=== PATIENT | male | born 1975 | race Caucasian/White ===

== ENCOUNTER 2020-02-19 07:23 | Outpatient (CLI) | payer BC, SELFPAY ==
[2020-02-19 07:38] LABS: Basophils Absolute Auto 0.1 K/mm3 (0.0-0.1); Basophils Percent Auto 0.9 % (0.2-1.2); Eosinophils Absolute Auto 0.2 K/mm3 (0-0.3); Eosinophils Percent Auto 2.4 % (0-4.4); Hematocrit 44.1 % (42.0-52.0); Immature Granulocyte Absolute 0.01 K/mm3 (0.00-0.031); Immature Granulocyte Percent A 0.2 % (0-0.5); Lymphocytes Percent Auto 26.7 % (18.3-44.2); Mean Corpuscular Hemoglobin 32.3 pg (26-34); Mean Corpuscular Volume 94.8 fl (80-100); Monocytes Absolute Auto 0.5 K/mm3 (0.1-0.6); Monocytes Percent Auto 8.5 % (2.6-8.5); Neutrophils Absolute Auto 3.9 K/mm3 (1.3-6.7); Neutrophils Percent Auto 61.3 % (45.5-73.1); Platelet Count Result 196 k/mm3 (150-375); Red Blood Count 4.65 M/mm3 (4.6-6.20); Red Cell Distribution Width 11.9 % (11.5-14.5); White Blood Count 6.4 K/mm3 (4.5-10.0)
[2020-02-19 07:50] LABS: Alanine Aminotransferase 10 U/L (4-50); Albumin Level 4.4 g/dL (3.5-5.1); Alkaline Phosphatase 52 U/L (38-126); Anion Gap 5 mmol/L (8-16); Aspartate Amino Transferase 24 U/L (17-59); Bilirubin,Total 0.6 mg/dL (0.2-1.3); Blood Urea Nitrogen 23 mg/dL (9-20); Carbon Dioxide 29 mmol/L (22-30); Chloride 103 mmol/L (98-107); Cholesterol 179 mg/dL (0-200); Estimated Glomerular Filt Rate 59; Glucose 100 mg/dL (75-110); HDL Direct 43 mg/dL; Potassium 4.3 mmol/L (3.4-5.0); Sodium 137 mmol/L (137-145); Triglycerides 186 mg/dL (<150)
[2020-02-19 08:01] LABS: LDL Cholesterol Direct 82 mg/dL
== END 2020-02-19 07:24 | disposition home or self-care (01) ==
LOC: ANHLAB 07:26
PROVIDERS: PCP Internal Medicine; Visit Provider Internal Medicine
DX: Z13.228 Encounter for screening for other metabolic disorders (principal); Z13.220 Encounter for screening for lipoid disorders
CPT/HCPCS: 36415; 80053; 80061; 85025

== ENCOUNTER 2020-05-06 09:45 | Emergency (ER) | payer BC, SELFPAY ==
--- NOTE | ~2020-05-06 | XR_ITS ---
XR thoracic spine 3V DATE: 05/06/2020 11:23 INDICATION: Nontraumatic back pain radiating to right side TECHNIQUE: AP, lateral, swimmer views COMPARISON: None FINDINGS: No fracture or dislocation or bone destruction. The thoracic pedicles are intact. Mild dege nerative spurring of the thoracic spine. No paraspinal soft tissue thickening. IMPRESSION: Mild degenerative spurring Reviewed, dictated and finalized at location A. ESSOR OF RELIGION IMPRESSION: Mild degenerative spurring
--- NOTE | ~2020-05-06 | XR_ITS ---
XR chest 1V portable DATE: 05/06/2020 11:18 INDICATION: Right mid back thoracic pain TECHNIQUE: Portable AP chest on 05/06/2020 at 1110 hours COMPARISON: None FINDINGS: There is aortic arch calcification. Heart size appears within normal range. No hilar or med iastinal enlargement. No pulmonary infiltrate or consolidation, pleural effusion or pulmonary mass or congestion or pneumot horax. IMPRESSION: No active cardiopulmonary disease Reviewed, dictated and finalized at location A. TORIAL CLEANER
[2020-05-06 09:48] VITALS: BP 138/100; PULSE 60; RESP 20; O2SAT 99
--- NOTE | 2020-05-06 10:31 | ECG_ITS ---
Measurements Intervals [place] Rate: 63 P: 53 [place]: 185 QRS: 5 QRSD: 97 T: -10 QT: 375 QTc: 387 Interpretive Statements SINUS RHYTHM DELAYED PRECORDIAL R/S TRANSITION BORDERLINE ST-T WAVE ABNORMALITY- INFERIOR LEADS BASELINE ARTIFACT- II, III, AVR, AVF, V5 BORDERLINE ECG Electronically Signed On 05-06-2020 11:27:54 BOAT CLEANER by Zach Soler D.O.
--- NOTE | 2020-05-06 10:37 | ED.GENADULT ---
HPI - General Adult General Chief complaint: Back Pain/Injury Stated complaint: Back Pain Time Seen by Provider: 05/06/20 10:03 Source: patient and family Mode of arrival: ambulatory Limitations: no limitations History of Present Illness HPI narrative: 44 years old white male presents with pain and spasm at the right side of mid thoracic back started while sitting yesterday on the computer. Get better on anti-inflammatory medicine then comes back again. Get worse with any movement. Patient denies any fever, chills, nausea, vomiting, urinary symptoms, chest pain, shortness of breath, headache. Patient also denies exposure to anybody known having COVID-19. Patient brought to the emergency room with his mom. History of intermittent lower back pain patient. Patient denies any tingling, numbness, urinary incontinence or stool incontinence. Also denies any trauma Related Data Allergies Allergy/AdvReac Type Severity Reaction Status Date / Time No Known Allergies Allergy Verified 05/06/20 09:53 Review of Systems Review of Systems: Narrative: CONSTITUTIONAL: Denies fever, chills, or sweats. EYES: Denies visual changes, redness, or discharge. ENT: Denies rhinorrhea, congestion, sore throat, or otalgia. CARDIOVASCULAR: Denies chest pain, palpitations, or edema. RESPIRATORY: Denies cough or dyspnea. GASTROINTESTINAL: Denies abdominal pain, nausea, vomiting, or diarrhea. GENITOURINARY: Denies dysuria or hematuria. SKIN: Denies rash or itching. MUSCULOSKELETAL: Mid back pain NEUROLOGIC: Denies headache, numbness, or weakness. PSYCHIATRIC: Denies anxiety or depression. PMFSH Past Medical History Medical History Hernia History of abdominal pain Surgical History Surgical History H/O hernia repair Family History Family History Father Diabetes mellitus Mother Sarcoidosis Sibling Patient's sister is in good health Social History Social History Smoking status: Never smoker Alcohol intake: current Gender identity (if verbalized by the patient): Male Exam Narrative: Exam Narrative: General appearance: Well-developed, well-nourished Skin: Normal color Head: Normocephalic, nontraumatic Eyes: Clear conjunctiva ENT: Oropharynx normal, ears normal, nose normal Neck: Supple, nontender Chest and respiratory: Airway patent, no respiratory distress, no accessory muscle use Heart: Regular rate/rhythm Abdomen: Soft, nontender, no organomegaly, quiet bowel sounds Vascular: Normal peripheral pulses, normal capillary refill. Musculoskeletal: Patient unable to lay down in bed, sitting on a chair, was able to stand with severe pain in upright position, unable to tilt to either side or bend forward. Because of the severity of pain. Back exam showed no swelling, no bruises, no erythema, no localized tenderness. Severe limited range of motion Neurologic: Alert and oriented ?3, SECURITY ADVISOR is normal as tested, no gross motor deficit Course Course Emergency Course: Stable Vital Signs Vital signs: Vital Signs Pulse Rate 60 05/06/20 09:48 Respiratory Rate 20 05/06/20 09:48 Blood Pressure 138/100 H 05/06/20 09:48 Pulse Oximetry 99 05/06/20 09:48 Pulse Rate 60 05/06/20 09:48 Respiratory Rate 20 05/06/20 09:48 Blood Pressure 138/100 H 05/06/20 09:48 Pulse Oximetry 99 05/06/20 09:48 Medical Decision Making MDM Narrative Medical decision making narrative: Musculoskeletal pain is my concern. Labs, IV Toradol, Dilaudid, Valium ordere
[2020-05-06 11:03] LABS: Basophils Absolute Auto 0.1 K/mm3 (0.0-0.1); Basophils Percent Auto 0.7 % (0.2-1.2); Eosinophils Absolute Auto 0.1 K/mm3 (0-0.3); Eosinophils Percent Auto 1.5 % (0-4.4); Hematocrit 47.7 % (42.0-52.0); Hemoglobin 16.5 g/dL (14.0-18.0); Immature Granulocyte Absolute 0.01 K/mm3 (0.00-0.031); Immature Granulocyte Percent A 0.1 % (0-0.5); Lymphocytes Absolute Auto 1.53 K/mm3 (0.9-3.2); Lymphocytes Percent Auto 22.2 % (18.3-44.2); Mean Corpuscular HGB Conc 34.6 g/dl (32-36); Mean Corpuscular Hemoglobin 32.7 pg (26-34); Mean Corpuscular Volume 94.6 fl (80-100); Monocytes Absolute Auto 0.4 K/mm3 (0.1-0.6); Monocytes Percent Auto 6.1 % (2.6-8.5); Neutrophils Absolute Auto 4.8 K/mm3 (1.3-6.7); Neutrophils Percent Auto 69.4 % (45.5-73.1); Platelet Count Result 216 k/mm3 (150-375); Red Blood Count 5.04 M/mm3 (4.6-6.20); Red Cell Distribution Width 12.1 % (11.5-14.5); White Blood Count 6.9 K/mm3 (4.5-10.0)
[2020-05-06 11:13] LABS: Creatine Kinase 67 U/L (55-170)
[2020-05-06 11:15] LABS: Alanine Aminotransferase 13 U/L (4-50); Albumin Level 4.4 g/dL (3.5-5.1); Alkaline Phosphatase 55 U/L (38-126); Anion Gap 8 mmol/L (8-16); Aspartate Amino Transferase 26 U/L (17-59); Bilirubin,Total 0.8 mg/dL (0.2-1.3); Blood Urea Nitrogen 17 mg/dL (9-20); Calcium 9.7 mg/dL (8.4-10.2); Carbon Dioxide 29 mmol/L (22-30); Chloride 102 mmol/L (98-107); Estimated CRCL calculation 74 ml/min; Estimated Glomerular Filt Rate > 60; Glucose 100 mg/dL (75-110); Potassium 4.6 mmol/L (3.4-5.0); Sodium 139 mmol/L (137-145)
[2020-05-06 11:16] LABS: D Dimer 0.28 ug/mL (<0.48)
[2020-05-06 11:17] LABS: CRP 0.5 mg/dL (<1.0)
[2020-05-06 11:26] LABS: Add Urine Microscopic? YES; Appearance Urine Clear (Clear); Bilirubin Urine 1+ (Negative); Blood Urine Negative (Negative); Color Urine Yellow (Yellow); Glucose Urine UA Negative (Negative); Ketones Urine Negative (Negative); Leukocyte Esterase Ur Negative LEU/UL (Negative); Mucus Urine Rare /lpf; Nitrate Urine Negative (Negative); Protein Urine 1+ mg/dL (Negative); RBC Urine 0-2 /hpf (0-2); Specific Grav Ur 1.029 (1.001-1.035); Squamous Epithelial Cell Urine Rare /hpf (Few); Urobilinogen Urine Negative mg/dL (<2.0); WBC Urine 0-3 /hpf
[2020-05-06] MEDS: diazePAM INJ (*CRX) 10 MG/2 ML SYRINGE 5 MG IV PUSH (11:42)
[2020-05-06] MEDS: ONDANSETRON INJ 4 MG/2 ML VIAL IV PUSH (11:42)
[2020-05-06] MEDS: KETOROLAC 30 MG/ML VIAL (*BKC) IV PUSH (11:43)
[2020-05-06 12:19] VITALS: BP 121/78; PULSE 60; RESP 18; O2SAT 97
[2020-05-06 12:36] LABS: Erythrocyte Sedimentation Rate 1 mm/hr (0-20)
== END 2020-05-06 12:24 | disposition home or self-care (01) ==
PROVIDERS: Emergency Provider Emergency Medicine; PCP Internal Medicine
DX: M54.6 Pain in thoracic spine (principal); R94.31 Abnormal electrocardiogram [ECG] [EKG]
CPT/HCPCS: 36415; 71045; 72072; 80053; 81001; 82550; 85025; 85380; 85652; 86140; 93005; 96374; 96375; 99284; J1885; J2405; J3360

== ENCOUNTER 2021-05-06 08:14 | Outpatient (CLI) | payer BC, SELFPAY ==
[2021-05-06 09:27] LABS: Alanine Aminotransferase 14 U/L (4-50); Albumin Level 4.6 g/dL (3.5-5.1); Alkaline Phosphatase 54 U/L (38-126); Anion Gap 6 mmol/L (8-16); Aspartate Amino Transferase 24 U/L (17-59); Bilirubin,Total 0.6 mg/dL (0.2-1.3); Blood Urea Nitrogen 19 mg/dL (9-20); Calcium 9.5 mg/dL (8.4-10.2); Carbon Dioxide 32 mmol/L (22-30); Chloride 99 mmol/L (98-107); Cholesterol 196 mg/dL (0-200); Estimated Glomerular Filt Rate > 60; Glucose 90 mg/dL (65-110); HDL Direct 46 mg/dL; Sodium 137 mmol/L (137-145); Triglycerides 192 mg/dL (<150)
[2021-05-06 09:38] LABS: LDL Cholesterol Direct 97 mg/dL
[2021-05-06 09:50] LABS: Basophils Absolute Auto 0.1 K/mm3 (0.0-0.1); Basophils Percent Auto 0.8 % (0.2-1.2); Eosinophils Absolute Auto 0.1 K/mm3 (0-0.3); Eosinophils Percent Auto 2.2 % (0-4.4); Hematocrit 46.5 % (42.0-52.0); Hemoglobin 15.7 g/dL (14.0-18.0); Immature Granulocyte Absolute 0.02 K/mm3 (0.00-0.031); Immature Granulocyte Percent A 0.3 % (0-0.5); Lymphocytes Absolute Auto 1.49 K/mm3 (0.9-3.2); Lymphocytes Percent Auto 22.9 % (18.3-44.2); Mean Corpuscular HGB Conc 33.8 g/dl (32-36); Mean Corpuscular Hemoglobin 31.8 pg (26-34); Mean Corpuscular Volume 94.3 fl (80-100); Mean Platelet Volume 11.7 fl (7.4-10.4); Monocytes Absolute Auto 0.6 K/mm3 (0.1-0.6); Monocytes Percent Auto 8.5 % (2.6-8.5); Neutrophils Absolute Auto 4.3 K/mm3 (1.3-6.7); Neutrophils Percent Auto 65.3 % (45.5-73.1); Platelet Count Result 236 k/mm3 (150-375); Red Blood Count 4.93 M/mm3 (4.6-6.20); Red Cell Distribution Width 11.9 % (11.5-14.5); White Blood Count 6.5 K/mm3 (4.5-10.0)
== END 2021-05-06 08:15 | disposition home or self-care (01) ==
LOC: ANHLAB 08:15
PROVIDERS: PCP Internal Medicine; Visit Provider Nurse Practitioner
DX: Z13.228 Encounter for screening for other metabolic disorders (principal); R79.89 Other specified abnormal findings of blood chemistry; Z13.220 Encounter for screening for lipoid disorders
CPT/HCPCS: 36415; 80053; 80061; 85025

== ENCOUNTER 2022-03-16 09:43 | Outpatient (CLI) | payer BC, SELFPAY ==
--- NOTE | ~2022-03-16 | MR_ITS ---
EXAMINATION: MR knee LT wo con DATE: 03/16/2022 10:20 INDICATION: Left knee joint effusion with acute onset of left knee pain TECHNIQUE: Magnetic resonance imaging (MRI) of the left knee was performed without intravenous contra st. Sequences included coronal PD-weighted FSE, coronal PD-weighted FS FSE, sagittal T2-weighted FSE , sagittal PD-weighted FS FSE and axial PD weighted fat saturated FSE. COMPARISON: None. FINDINGS: Medial compartment: Medial meniscus is normal. Articular cartilage is normal. Lateral compartment: Lateral meniscus is normal. Articular cartilage is normal. Patellofemoral compartment: Deep chondral fissuring with mild underlying subarticular edema-like signal change at the medial side of the lateral patellar facet and apical ridge as well as at the medial patellar facet where there i s also mild underlying cortical irregularity. Partial-thickness chondral ulceration which appears to involve greater than 50% the cartilage thickness but with relatively smooth chondral surfaces and wit hout degenerative subchondral changes located along the central aspect of the lateral trochlea and at the lateral side of the medial trochlea. Deep chondral fissuring without degenerative subchondral ch anges at the inferior aspect of the medial trochlea. Ligaments and tendons: Anterior and posterior cruciate ligaments are normal. The medial collateral ligament and fibular tessy ateral ligament complex are normal. The extensor mechanism is normal. The visualized medial and later al hamstring tendons as well as the iliotibial band are normal. Fluid: Small left knee joint effusion. No loose osteochondral bodies identified. Osseous/other: Normal marrow signal aside from the previous noted small foci of subarticular edema-like signal caicedo e at the patella.. No fracture or pathologic marrow replacing process. IMPRESSION: 1. 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 2. Small left knee joint effusion. Reviewed, dictated and finalized at location A. IMPRESSION: 1. Mild patellofemoral osteoarthritis with high-grade patellar and moderate gra de trochlear chondromalacia. 2. Small left knee joint effusion.
== END 2022-03-16 09:44 | disposition home or self-care (01) ==
LOC: ANHIMG 09:44
PROVIDERS: PCP Internal Medicine; Visit Provider Physician Assistant
DX: M25.562 Pain in left knee (principal); M25.462 Effusion, left knee; M17.12 Unilateral primary osteoarthritis, left knee; M94.262 Chondromalacia, left knee
CPT/HCPCS: 73721

== ENCOUNTER 2022-04-17 08:24 | Outpatient (CLI) | payer BC, SELFPAY ==
[2022-04-17 09:33] LABS: Basophils Percent Auto 0.6 % (0.2-1.2); Eosinophils Absolute Auto 0.1 K/mm3 (0-0.3); Eosinophils Percent Auto 1.4 % (0-4.4); Hematocrit 46.7 % (42.0-52.0); Hemoglobin 15.6 g/dL (14.0-18.0); Immature Granulocyte Absolute 0.01 K/mm3 (0.00-0.031); Immature Granulocyte Percent A 0.2 % (0-0.5); Lymphocytes Absolute Auto 1.33 K/mm3 (0.9-3.2); Lymphocytes Percent Auto 21.2 % (18.3-44.2); Mean Corpuscular HGB Conc 33.4 g/dl (32-36); Mean Corpuscular Hemoglobin 32.4 pg (26-34); Mean Corpuscular Volume 97.1 fl (80-100); Monocytes Absolute Auto 0.4 K/mm3 (0.1-0.6); Monocytes Percent Auto 6.4 % (2.6-8.5); Neutrophils Absolute Auto 4.4 K/mm3 (1.3-6.7); Neutrophils Percent Auto 70.2 % (45.5-73.1); Platelet Count Result 215 k/mm3 (150-375); Red Blood Count 4.81 M/mm3 (4.6-6.20); Red Cell Distribution Width 12.2 % (11.5-14.5); White Blood Count 6.3 K/mm3 (4.5-10.0)
[2022-04-17 09:55] LABS: Alanine Aminotransferase 16 U/L (6-50); Albumin Level 4.5 g/dL (3.5-5.1); Alkaline Phosphatase 51 U/L (38-126); Anion Gap 6 mmol/L (8-16); Aspartate Amino Transferase 26 U/L (17-59); Bilirubin,Total 0.5 mg/dL (0.2-1.3); Blood Urea Nitrogen 22 mg/dL (9-20); Carbon Dioxide 31 mmol/L (22-30); Chloride 104 mmol/L (98-107); Cholesterol 197 mg/dL (0-200); Estimated Glomerular Filt Rate > 60; Glucose 98 mg/dL (65-110); HDL Direct 50 mg/dL; Sodium 141 mmol/L (137-145); Triglycerides 191 mg/dL (<150)
[2022-04-17 10:05] LABS: LDL Cholesterol Direct 87 mg/dL
== END 2022-04-17 08:25 | disposition home or self-care (01) ==
PROVIDERS: PCP Internal Medicine; Visit Provider Clinical Nurse Specialist
DX: Z13.220 Encounter for screening for lipoid disorders (principal); Z13.29 Encounter for screening for other suspected endocrine disorder
CPT/HCPCS: 36415; 80053; 80061; 85025

== ENCOUNTER 2024-09-05 00:36 | Day surgery (SDC) | payer OTHER, SELFPAY ==
[2024-08-27 08:50] VITALS: BMI 31.4
--- OUTSIDE RECORDS SUMMARY | 2024-09-05 00:38 | XMS_ITS | Referral Summary ---
Author Organization [facility] Address [address] [place] [address] Care Team Providers Care Potato Peeler Name Role Phone Alberto Hurley DO Primary Care Provider [phone]- [phone] Allergies No known active allergies Medications No known medications Active Problems Problem Noted Date Diagnosed Date Inguinal pain 02/26/2014 Social History Tobacco Use Types Packs/Day Years Used Date Smoking Tobacco: Never Personal Safety Answer Date Recorded Have you ever been in or are you currently in a harmful physical or emotional relationship or is someone making you feel afraid or unsafe? 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 Gender Identity Not on file Sexual Orientation Not on file Last Filed Vital Signs Vital Sign Reading Time Taken Comments Blood Pressure 124/87 10/03/2023 10:45 AM CDT Pulse 75 10/03/2023 10:45 AM CDT Temperature 36.4 C (97.5 F) 10/03/2023 10:10 AM CDT Respiratory Rate 18 10/03/2023 10:45 AM CDT Oxygen Saturation 95% 10/03/2023 10:45 AM CDT Inhaled Oxygen Concentration - - Weight 88.5 kg (195 lb) 02/27/2022 8:35 AM CDT Height 170.2 cm (5' 7 ) 02/27/2022 8:35 AM CDT Body Mass Index 30.54 02/27/2022 8:35 AM CDT Plan of Treatment Not on file [place] Care Teams Potato Peeler Relationship Specialty Start Date End Date Yaonsky, Alberto B., DO PCP - General Internal Medicine 12/29/21
--- OUTSIDE RECORDS SUMMARY | 2024-09-05 00:38 | XMS_ITS | Clinical Summary ---
Author Organization [facility] Address [address] [place] [address] Care Team Providers Care Coupler Name Role Phone Alberto Hurley DO Primary Care Provider [phone]- [phone] Allergies No known active allergies Medications No known medications Active Problems Problem Noted Date Diagnosed Date Inguinal pain 02/26/2014 Surgical History Surgery Date Site/Laterality Comments NO PAST SURGERIES FLUORO GUIDED INJECTION SHOULDER LEFT 10/03/2023 Lef t Medical History Medical History Date Comments No pertinent past medical history Family History Medical History Relation Name Comments Diabetes Father Family history of diabetes mellitus - (Added by TW Conv) Relation Name Status Comments Father Social History Tobacco Use Types Packs/Day Years Used Date Smoking Tobacco: Never Personal Safety Answer Date Recorded Have you ever been in or are you currently in a harmful physical or emotional relationship or is someone making you feel afraid or unsafe? Denies 10/03/2023 Sex and Gender Information Value Date Recorded Sex Assigned at Not on file Legal Sex Male 10:44 AM APPLICATIONS SPECIALIST Gender Identity Not on file Sexual Orientation Not on file Obstetrics History Last Filed Vital Signs Vital Sign Reading [...] 02/27/2022 8:35 AM CDT Plan of Treatment Health Maintenance Due Date Last Done Comments Colon Cancer Screening-Colonoscopy 1973 Depression Screening 1973 Hepatitis C Screening 1973 Prostate Cancer Screening-PSA 1973 DTaP/Tdap/Td Vaccine (1 - Tdap) 1984 Hepatitis B Screening 10/25/1991 Regular Well Visit/Exam 18-64 10/25/1991 Zoster Vaccine (1 of 2) 10/25/2023 Covid-19 Vaccine (3 - 2023-2 5 season) 2024 02/09/2021, 01/19/2021 Influenza Vaccine (Season Ended) 2025 Pneumococcal vaccine <65 Aged Out No longer eligible based on patient's age to complete this topic Insurance [employer] [facility] [place] [address] [facility] Care Teams Coupler Relationship Specialty Start Date End Date Alberto Hurley DO PCP - General Internal Medicine 12/29/21
--- OUTSIDE RECORDS SUMMARY | 2024-09-05 00:38 | XMS_ITS | Continuity of Care Document ---
Author Organization [facility] Address [address] [place] [address] Phone Care Team Providers Care Manager Of Program Name Role Phone Ordaz ROBERT Yaz Unavailable Unavailable Procedures Procedure Date THERAPEUTIC EXERCISES NEUROMUSCULAR RE-ED MANUAL THERAPY FUNC ACTIVITY THERAPEUTIC EXERCISES NEUROMUSCULAR RE-ED FUNC ACTIVITY PT EVALUATION THERAPEUTIC EXERCISES NEUROMUSCULAR RE-ED MANUAL THERAPY Advance Directives Directive Yes / No Effective Date File Name No Information Encounters Encounter Description Practice Location Reason(s) For Visit Diagnoses Date Provider Providers Copied on Encounter [facility] [address] [place] [address], [id number], [phone] [place] No Information 5 Orlin Mukherjee. [address] [facility] [address], [place], [facility], [place]. tel: [phone] [address], [place], [place], [id number], [phone] [place] No Information 4 Morris Oneal. [address] [facility], [facility] [address], [place], [facility], . tel: [phone] Referring Provider: Adam Huang, [address], [place], [address]. tel:[phone], [place], [place], [id number], [phone] [place] Other and unspecified injury to hip and thigh [address] [place] [address] [facility], [address], [place], [facility], . tel: [phone] Referring Provider: Rosa [address], [place], [address]. tel:[phone] [facility], [address], [place], [place], [id number], [phone] [place] Pain in joint involving pelvic region and thigh 4 Morris Oneal. [address] [facility], [address], [place], [address], . tel: [phone] Referring Provider: Rosa [address], [place], [address]. tel:[phone] Family History Family Member Type Diagnosis Age At Onset No Information Payers Payer name Insurance type Covered republican ID Authoriza tion(s) No Information Social History Type Description Quantity Date Captured Comments Sex Male Smoking Status No Information Chief Complaint And Reason For Visit No Information Reason For Referral Reason For Referral No Information History Of Present Illness Encounter Date Complaint History Of Prese nt Illness No Information Functional Status Date Functional Assessmen t No Information Instructions Date Instruction Additional Infor mation No Information Assessments Type Assessment Date No Information Patient Care Teams Name Effective Dates (start - stop) Status Members No Information
--- OUTSIDE RECORDS SUMMARY | 2024-09-05 00:38 | XMS_ITS | Clinical Summary ---
Author Organization [facility] Address [address] [place] [address] Care Team Providers Care Pipe Roller Name Role Phone Unavailable Primary Care Provider Unavailabl e Immunizations Immunization Administration Dates Next Due Covid-19, Mrna, Lnp-s, Pf, 30 Mcg/0.3 Ml Dose (Marilynn chandler) 02/09/2021,01/19/2021 Social History Tobacco Use Types Packs/Day Years Used Date Smoking Tobacco: Never Assessed Sex and Gender Information Value Date Recorded Sex Assigned at Not on file Legal Sex Male 9:42 PM CDT Gender Identity Not on file Sexual Orientation Not on file Plan of Treatment Health Maintenance Due Date Last Done Comments Hepatitis C Virus (HCV) Screening 1973 TdaP Immunization 1973 Hepatitis B Immunization (1 of 3 - 19+ 3-dose series) 1992 Colonoscopy 2018 Colorectal Cancer Screening 2018 Cologuard 10/25/2023 Immunochemical Fecal Occult Blood 10/25/2023 Pneumococcal Immunization (5 0+ years) (1 of 1 - PCV) 10/25/2023 Zoster Immunization (1 of 2) 10/25/2023 Influenza Immunization (#1) 2024 SARS-COV-2 Immunization (3 - 2023- season) 2024 02/09/2021, 01/19/2021 Respiratory Syncytial Virus (RSV) Immunization (Adult) (1 - 1-dose 75+ series) 2048 Meningococcal Immunization (ACWY) Aged Out No longer eligible b ased on patient's age to complete this topic Rotavirus Immunization Aged Out No lo nger eligible based on patient's age to complete this topic
--- OUTSIDE RECORDS SUMMARY | 2024-09-05 00:39 | XMS_ITS | Data Portability ---
Author Organization [facility], Main Office Address [address] [place] [address] Assessment Encounter Date Assessment Date Assessment LastModified by Organization Details LastModified Time 09/01/2022 09/01/2022 46-year-old male presenting for evaluation of his left knee. We are also seeing his daughter, who is the freshman athlete at [employer] with patellar dislocation Treated conservatively. He reports he was playing basketball about 9 months ago, with his kids, when he felt a sudden pain in the lateral and posterior aspect of the left knee. He does report some mechanical symptoms including difficulty extending from a flexed position. He has not treatments, but did get an MRI, which was negative. It still bothers him frequently, Getting progressively worse,and he has been limited in his activities. He has not been able to run or play with his kids. Review of systems per patient questionnaire nonantalgic gait. No effusion. He has tenderness palpation over the posterior aspect of the left knee, And some discomfort over the medial joint line. Range of motion 0-135, with some discomfort in terminal flexion. Negative Scott's. Stable Niall's, posterior drawer, varus and valgus stress at previous MRI was reviewed, demonstrating no abnormalities, preserve ligaments and menisci his symptoms that he is describing sounds like a meniscus injury, but the MRI was negative and he has not tried any formal treatments yet. We will give him an order for physical therapy and also a prescription for meloxicam. We will see him back in 4 weeks for follow-up. [email or web address] Not available 09/01/2022 11:29:07 Plan of Treatment Reminders Order Date Submit Date Provider Last Modified By Organization Details Last Modified Time Details Appointments None recorded. Lab None recorded. Referral physical therapist referral - Please contact pt to schedule for L knee. Thanks 2022 023 [email or web address] [facility], [address], [place], [address], 18:30:57 Procedures None recorded. Surgeries None recorded. Imaging None recorded. Medication Orders Mobic 15 mg tablet 2022 023 [email or web address] [id number], [address], [place], [place], [id number], 18:30:57 Patient TargetsNo targets recorded. Patient InstructionsNo instructions recorded. Reason for Referral Physical Therapist Referral for Pain of left knee joint L knee Please contact pt to schedule for L knee. Thanks Referring Physician: Alberto Tomlin, Orthopedic Surgery, Encounter Date: 09/01/2022 Results Created Date Observation Date Name Description Value Unit Range Abnormal Flag Note LastModifiedBy Organization Detail LastModifiedTime 09/02/1903/16/2022 MRI, knee, w/o contr ast No observ ation record ed. [email or web address] Not Available 2022 09:20:57 Result Notes None recorded. Problems Name Problem SNOMED Code Status Onset Date Resolution Date Notes Provider Name and Address Organization Details Recorded Time Pain of left knee joint [id number] Active 2022 Rachel Nicolas , ATC L null, [employer] 10:08:36 Problem Notes None recorded. Procedures Surgical History Date Name Laterality Status Provider Name and Address Organization Details Recorded Time Hernia Repair completed TRITSIN Jamison [employer] 09/01/2022 09:26:19 Imaging Results Imaging Date Name Status LastModified by Organiz ation Details LastModified Time 03/16/2022 MRI, knee, w/o contrast completed Information not available 09/01/2022 09:20:57 Procedure Notes None recorded. Medical Equipment None Reported. Allergies No known drug allergies Medications Name Sig Start Date Stop Date Status Note LastModified by Organization Details LastModified Time meloxicam 15 mg tablet TAKE 1 TABLET BY MOUTH EVERY DAY 2023 active Not Available Not Available Not Avai lable celecoxib 100 mg capsule TAKE 1 CAPSULE BY MOUTH TWICE DAILY 09/01 completed Not Available Not Available Not Available Vitals Date Recorded Body height Body mass index (BMI) Body weight Provider Name and Address Organization Details Last Updated DateTime 09/01/2022 170.18 cm 31.3 kg/m2 54374.47 g TRISTIN Kent [facility] [employer] [facility] 09/01/2022 09:25:26 Social History Question Answer Notes LastModified by Organizat ion Details LastModified Time Tobacco Smoking Status Never Smoker Augustine FariasleyTRISTIN null, [facility] [employer] [facility] 09/01/2022 09:26:13 What Is Your Level Of Alcohol Consumption? None Information not available 09/01/2022 Sex: Unknown Functional Status None recorded. Mental Status None recorded. Family History Relationship Description Onset Age of this Age Resolved Age Notes LastModified by Organization Details LastModified Time Father Diabetes mellitus [email or web address] Not available 2022 09:26:04 Medical History No medical history recorded. Past Encounters Encounter ID Performer Location Encounter Start Date Encounter Closed Date Diagnosis/Indication Diagnosis SNOMED-CT Code Diagnosis ICD10 Code Diagnosis Note [id number] Alberto Tomlin MD [facility] [address] [place] [address] 09/01/2022 09:18:22 09/01/2022 10:14:17 Pain of left knee joint [id number] 51359 M25.562 Health Concerns Section Related Observation LastModified by Organization Detai ls LastModified Time None Recorded Concern Status LastModified by Organization Details LastModified Time None Recorded Advance Directives Directive None Recorded Payers Encounter Date Sequence Insurance Name Policy Number Policy Felton Covered Member ID Felton Member ID Guarantor Name 09/01/2022 1 [place] [id number] Lazaro Aguirre [id number] Lazaro Aguirre
--- OUTSIDE RECORDS SUMMARY | 2024-09-05 00:39 | XMS_ITS | Clinical Summary ---
Author Organization [facility] [email or web address] Address [address] [place] [address] Care Team Providers Care Buckle Gluer Name Role Phone Unavailable Primary Care Provider Unavailabl e Source Comments [facility] [email or web address],non-owned Affiliates and Associated Physician Practices is amultiple site organization consisting of ambulatory clinics and hospital sitesin [place], [place], [place] and [place]. This disclosure is being madepursuant to the Care Everywhere program and may not contain all information available regarding this patient. Last updated 18.[facility] [email or web address] Social History Tobacco Use Types Packs/Day Years Used Date Smoking Tobacco: Never Assessed Sex and Gender Information Value Date Recorded Sex Assigned at Not on file Gender Identity Not on file Sexual Orientation Not on file Plan of Treatment Health Maintenance Due Date Last Done Comments COLOGUARD (AGES 45-75) - COL ON CA SCREENING 1973 COLON MONITORING 1973 COLONOSCOPY - COLON CA SCREENING 1973 CT COLONOGRAPHY - COLON CA SCREENING 1973 Colorectal Cancer Screening 1973 FIT - COLON CA SCREENING 1973 FLEX SIG - COLON CA SCREENING 1973 LIPID TESTING 1973 HIV SCREENING 1988 HEPATITIS C SCREENING 10/20/1991 DTAP/TDAP/TD VACCINES (1 - Tdap) 1992 HEPATITIS B VACCINE (1 of 3 - 19+ 3-dose series) 1992 PNEUMOCOCCAL VACCINE 50+ (1 of 1 - PCV) 10/25/2023 ZOSTER VACCINE (1 of 2) 10/25/2023 COVID-19 VACCINE ( - 2023-2 5 season) 2024 DEPRESSION SCREENING 05/28/2024 INFLUENZA VACCINE (Season Ended) 2025 HIB VACCINE Aged Out No longer eligi ble based on patient's age to complete this topic HPV VACCINE Aged Out No longer eligi ble based on patient's age to complete this topic MENINGOCOCCAL (Group B) VACC INE SHARED DECISION-MAKING Aged Out No longer eligibl e based on patient's age to complete this topic MENINGOCOCCAL GROUPS A/C/Y/W VACCINE Aged Out No longer eligible b ased on patient's age to complete this topic PNEUMOCOCCAL VACCINE Aged Out No long er eligible based on patient's age to complete this topic
--- OUTSIDE RECORDS SUMMARY | 2024-09-05 00:39 | XMS_ITS | Encounter Summary ---
Author Organization [facility] Address [address] [place] [address] Care Team Providers Care Special Education Director Name Role Phone Unavailable Primary Care Provider Unavailabl e Encounter Details Date Type Department Care Team (Late st Contact Info) Description 02/17/2021 Lab Requisition [facility] [address] [place] [id number] Yeison Urlich MD [address] [place] [address] Social History Tobacco Use Types Packs/Day Years Used Date Smoking Tobacco: Never Assessed Sex and Gender Information Value Date Recorded Sex Assigned at Not on file Gender Identity Not on file Sexual Orientation Not on file documented as of this encounter Plan of Treatment Not on file documented as of this encounter Procedures Procedure Name Priority Date/Time Associated Diagnosis Comments DERMATOPATHOLOGY Routine 02/15/2021 3:33 AM CDT documented in this encounter Results * DERMATOPATHOLOGY (02/15/2021 3:33 AM CDT) Case Report Dermatopathology Report Case: [id number] Authorizing Provider: Yeison Ulrich MD Collected: 02/15/2021 03:33 AM Ordering Location: [facility] Received: 02/17/2021 05:52 AM Pathologist: Eileen Bean MD Specimen: Skin, right antihelix 1 2:59 PM CDT DERMATOPATHOLOGY LABORATORY Final Diagnosis Specimen A. SKIN, right antihelix: SQUAMOUS CELL CARCINOMA, WELL DIFFERENTIATED (C44.222) 1 2:59 PM CDT DERMATOPATHOLOGY LABORATORY Clinical History R/O SCC. 1 2:59 PM CDT DERMATOPATHOLOGY LABORATORY Gross Description Specimen A: Received is one formalin filled container labeled with the patient's name and designated right antihelix. The specimen consists of a shave biopsy measuring [id number]. Jar 0. 1 2:59 PM CDT DERMATOPATHOLOGY LABORATORY Microscopic Description Specimen A. SKIN, right antihelix: Arising in the epidermis and extending into the dermis there are irregularly shaped aggregates of keratinocytes showing evidence of premature cornification. 1 2:59 PM CDT DERMATOPATHOLOGY LABORATORY Disclaimer An external and internal positive and negative controls are appropriate for the histochemical, immunohistochemical and immunofluorescence stain(s) in this case (if any), except where stated explicitly. The performance characteristics of the stain(s) cited in this report were developed and its performance characteristic determined by the Dermatopathology Laboratory at [facility], directed by Dr. Hawk Freeman. These tests need not be, and therefore are not, approved by the [place] Food and Drug Administration. The tests are used for clinical purposes. Billing Codes Specimen Charges Stain Charges 46774 1 1 2:59 PM CDT DERMATOPATHOLOGY LABORATORY Embedded Images 1 2:59 PM CDT DERMATOPATHOLOGY LABORATORY Pathology/Cytolo gy TISSUE SPECIMEN FROM SKIN / Unknown 02/15/2021 3:33 AM CDT 02/17/2021 5:52 AM CDT Yeison Ulrich MD LAB - PATHOLOGY/CYTO LOGY ORDERABLES DERMATOPATHOLOGY LABORATORY [facility] [place] Department of Dermatology [address] [phone] documented in this encounter Visit Diagnoses Not on filedocumented in this encounter
--- OUTSIDE RECORDS SUMMARY | 2024-09-05 00:39 | XMS_ITS | Clinical Summary ---
Author Organization [facility] Address [facility] [address] [place] [address] Care Team Providers Care Counterintelligence Analyst Name Role Phone Alberto Hurley DO Primary Care Provider [phone] Social History Tobacco Use Types Packs/Day Years Used Date Smoking Tobacco: Never Assessed Sex and Gender Information Value Date Recorded Sex Assigned at Not on file Legal Sex Male 6:34 PM CDT Gender Identity Not on file Sexual Orientation Not on file Plan of Treatment Health Maintenance Due Date Last Done Comments Colorectal Cancer Screening Colonoscopy (10 Years) 1973 Annual Physical 1976 Hepatitis C 10/25/1991 DTaP, Tdap and Td Vaccines ( 1 - Tdap) 1992 Hepatitis B Vaccines (1 of 3 - 19+ 3-dose series) 1992 Zoster Vaccines (1 of 2) 10/25/2023 COVID-19 Vaccine (1 - 2023-2 5 season) 2024 Meningococcal B Vaccine Aged Out No l onger eligible based on patient's age to complete this topic Meningococcal Vaccine Aged Out No blaine caleb eligible based on patient's age to complete this topic Pneumococcal Vaccine: Pediat rics (0 to 5 Years) and At-Risk Patients (6 to 64 Years) Aged Out No longer eligible b ased on patient's age to complete this topic RSV Immunizations Under 20 Months Aged Out No longer eligible based on patient's age to complete this topic Care Teams Counterintelligence Analyst Relationship Specialty Start Date End Date Alberto Hurley, [address] [place] [address] PCP - General 01/26/16
[2024-09-05 06:41] VITALS: BP 125/80; PULSE 83; RESP 18; TEMP 36.6; O2SAT 96; BMI 34.0
[2024-09-05] MEDS: LACTATED RINGERS 1,000 ML 150 ML IV CONT (06:51)
--- NOTE | 2024-09-05 07:54 | WPDANESEPPF ---
Anes - Initial Pre Proc Eval Procedure: Operation Date: 09/05/24 08:00 Proposed Procedures p Screening Colonoscopy - Declan Jiménez MD Date/Time: 09/05/24 07:54 Surgeon: Declan Jiménez MD Pre Op Diagnosis: Screening Patient Data Age: 48 Gender: M Height: 1.7 m Weight: 98.5 kg Last Vital Signs Temp 98 F 09/05/24 06:41 Pulse 83 09/05/24 06:41 Resp 18 09/05/24 06:41 BP 125/80 09/05/24 06:41 Pulse Ox 96 09/05/24 06:41 O2 Del Method Room Air 09/05/24 06:41 Allergies Allergy/AdvReac Type Severity Reaction Status Date / Time No Known Allergies Allergy Verified 09/05/24 06:40 Home Medications ?Medication ?Instructions ?Recorded ?Confirmed ?Type No Home Medications 05/12/21 08/27/24 History Patient hx anesthesia problems: none Family hx anesthesia problems: none Results Review: All pre-operative results and documents have been reviewed as part of the pre-operative evaluation. [facility] Past Medical History Medical History (Updated 07/15/24 @ 21:54 by SOLITARIO Lamas-C) Throat pain Elevated serum creatinine LPRD (laryngopharyngeal reflux disease) Obesity Hypertriglyceridemia Hx of squamous cell carcinoma of skin Right ear 2020 Hernia History of abdominal pain Surgical History Surgical History H/O hernia repair Family History Family History Father Diabetes mellitus Mother Sarcoidosis Sibling Patient's sister is in good health Social History Social History Social History: Caffeine- daily Smoking status: Never smoker Alcohol intake: current Drinks per week: 2 Alcohol use details: occasional Substance use: never Substance use type: does not use Lack of Transportation: No Lack of Food: Never True Current Housing: I Have Housing Concerned About Future Housing: No Difficulty Paying Gas/Electric Bills: No Difficulty Paying for Meds: No Currently Unemployed: No Education: Associate Degree Difficulty w/ Childcare or Family Care: No Gender identity (if verbalized by the patient): Male Spiritual care concerns: No Anes - Eval Final PreProcedure Day of Procedure 09/05/24 07:54 Patient weight: obese Heart: regular rate and rhythm Lungs: clear to auscultation Airway: Mallampati scale class II Neurological: alert and oriented Last oral intake: >/= 8 hours ASA classification: II Emergent: no Anesthetic plan: proceed Anesthesia type and monitoring: general GIVS and standard monitoring Results Review: All pre-operative results and documents have been reviewed as part of the pre-operative evaluation. Informed Consent: The patient's anesthetic plan and its attendant risks and benefits were discussed with the patient/family/POA. Questions were solicited and answers provided to the satisfaction of the patient/family/POA.
--- NOTE | 2024-09-05 08:04 | PM.IMHP ---
H&P: HPI History of Present Illness Date/Time: 09/05/24 08:04 Chief Complaint: Screening colonoscopy Narrative: This is the patient's first colonoscopy. There are no GI symptoms and there is no family history of colorectal cancer. Review of Systems Review of Systems: All systems reviewed & are unremarkable except as noted in HPI and below [facility] Past Medical History Medical History (Updated 07/15/24 @ 21:54 by CHETNA Lamas) Throat pain Elevated serum creatinine LPRD (laryngopharyngeal reflux disease) Obesity Hypertriglyceridemia Hx of squamous cell carcinoma of skin Right ear 2020 Hernia History of abdominal pain Surgical History Surgical History H/O hernia repair Family History Family History Father Diabetes mellitus Mother Sarcoidosis Sibling Patient's sister is in good health Social History Social History Social History: Caffeine- daily Smoking status: Never smoker Alcohol intake: current Drinks per week: 2 Alcohol use details: occasional Substance use: never Substance use type: does not use Lack of Transportation: No Lack of Food: Never True Current Housing: I Have Housing Concerned About Future Housing: No Difficulty Paying Gas/Electric Bills: No Difficulty Paying for Meds: No Currently Unemployed: No Education: Associate Degree Difficulty w/ Childcare or Family Care: No Gender identity (if verbalized by the patient): Male Spiritual care concerns: No Meds Home Medications and Allergies Home Medications ?Medication ?Instructions ?Recorded ?Confirmed ?Type No Home Medications 05/12/21 08/27/24 History Allergies Allergy/AdvReac Type Severity Reaction Status Date / Time No Known Allergies Allergy Verified 09/05/24 06:40 Vital Signs Vital Signs - 24 hr 09/05/24 06:41 Temperature 98 F Pulse Rate 83 Respiratory Rate 18 Blood Pressure 125/80 Pulse Oximetry 96 Oxygen Delivery Room Air Exam Const: General: cooperative and healthy appearing Resp: Effort & Inspection: normal respiratory effort and able to speak in complete sentences Auscultation: clear to auscultation bilaterally Cardio: Rate: regular rate Rhythm: regular rhythm GI: Inspection: normal to inspection GI Palp: No No hepatosplenomegaly present Auscultation: normal bowel sounds Rectal Exam: deferred Skin: General skin exam: normal color Psych: Appearance: grossly normal Mental Status: mental status grossly normal Assessment and Plan Assessment and plan (1) Screening for colon cancer: Code(s): Z12.11 - Encounter for screening for malignant neoplasm of colon Status: Acute Assessment and Plan: The patient is deemed a good candidate for the procedure. Consent signed. Will proceed.
[2024-09-05 08:28] VITALS: BP 121/83; PULSE 60; RESP 18; O2SAT 98
[2024-09-05 08:38] VITALS: BP 118/81; PULSE 71; RESP 18; O2SAT 100
[2024-09-05 08:45] VITALS: BP 121/81; PULSE 60; RESP 18; O2SAT 100
== END 2024-09-05 08:53 | disposition home or self-care (01) ==
PROVIDERS: PCP Internal Medicine; Referring Provider Clinical Nurse Specialist; Visit Provider Internal Medicine Gastroenterology
PROC: 0DJD8ZZ Inspection of Lower Intestinal Tract, Via Natural or Artificial Opening Endoscopic (ICD-10-PCS; CPT 45378; principal; 2024-09-05 08:00)
DX: Z12.11 Encounter for screening for malignant neoplasm of colon (principal); K57.30 Diverticulosis of large intestine without perforation or abscess without bleeding; K21.9 Gastro-esophageal reflux disease without esophagitis; E78.1 Pure hyperglyceridemia; E66.9 Obesity, unspecified; Z68.34 Body mass index [BMI] 34.0-34.9, adult; Z98.890 Other specified postprocedural states; Z85.828 Personal history of other malignant neoplasm of skin
CPT/HCPCS: 45378; J2003; J2704; J7120